=== PATIENT | female | born 1930 | race African-American/Black ===

== ENCOUNTER 2019-12-25 18:19 | Emergency (ER) | payer OTHER, MEDICARE ==
[~2019-12-25] VITALS: Ht 167.6 cm; Wt 77.2 kg
--- NOTE | 2019-12-25 19:16 | RAD ---
AP and lateral left hip radiographs to include an AP radiograph of the pelvis 12/25/2019 CLINICAL HISTORY: Fall with left hip pain. An AP digital radiograph of the pelvis to include both hips was obtained. AP and lateral digital radiographs of the left hip were obtained. There is diffuse osteopenia of the visualized bony structures. No pelvic bone fracture is seen. An acute subcapital fracture of the left femoral neck is seen. The fracture fragments are slightly impacted. No dislocation of the left hip is noted. The right hip is intact. 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 IMPRESSION: Acute subcapital fracture of the left femoral neck. Electronically signed by: Ha White MD (12/25/2019 7:13 PM) [id number]
--- NOTE | 2019-12-25 20:06 | PHYS DOC ---
Past History Past Medical History: Hypertension (FATIMAH BLANDON APRN) Past Surgical History: No Surgical History (FATIMAH BLANDON APRN) Alcohol Use: None (FATIMAH BLANDON APRN) General Adult EDM: Chief Complaint: MECHANICAL FALL HPI: HPI: Patient is a 89-year-old female, brought to the emergency room via EMS with reports of left hip and buttock pain after a fall this evening at about 1600. Patient denies any numbness, or tingling of the affected lower extremity. She reports that she lost her balance and fell onto her butt. She denies any head, neck, or back pain. Patient denies any nausea, vomiting, or loss of consciousness. She currently denies any shortness of breath, cough, chest pain, palpitations, or abdominal pain. She currently rates her pain a 5 out of 10 on the pain scale, she reports the pain is worse with movement and palpation. (FATIMAH BLANDON APRN) Review of Systems: Review of Systems: Complete ROS is negative unless otherwise noted in HPI. (FATIMAH BLANDON APRN) Physical Exam: PE: See Above Constitutional: Well developed, well nourished, no acute distress, non-toxic appearance. [] HENT: Normocephalic, atraumatic, bilateral external ears normal, nose normal. [] Eyes: PERRLA, EOMI, conjunctiva normal, no discharge. [] Neck: Normal range of motion, no tenderness, supple, no stridor. [] Cardiovascular:Heart rate regular rhythm Lungs & Thorax: Respirations even and unlabored, no retractions, no respiratory distress Abdomen: soft, no tenderness Skin: Warm, dry, no erythema, no rash. [] Back: No tenderness, no CVA tenderness. [] Extremities: Left hip: Tenderness to palpation without rotation or shortening, no crepitus, no cyanosis, ROM limited due to pain. Neurologic: Alert and oriented X 3, normal motor function, normal sensory function, no focal deficits noted. [] Psychologic: Affect normal, judgement normal, mood normal. [] (FATIMAH BLANDON APRN) Current Patient Data: Vital Signs: Vital Signs Date Time Temp Pulse Resp B/P (MAP) Pulse Ox O2 Delivery O2 Flow Rate FiO2 12/25/19 18:52 97.7 78 18 195/83 (120) 96 Room Air (FATIMAH BLANDON APRN) EKG: EKG: [] (FATIMAH BLANDON APRN) Radiology/Procedures: Radiology/Procedures: PROCEDURE: HIP LEFT 2V WITH PELVIS AP and lateral left hip radiographs to include an AP radiograph of the pelvis 12/25/2019 CLINICAL HISTORY: Fall with left hip pain. An AP digital radiograph of the pelvis to include both hips was obtained. AP and lateral digital radiographs of the left hip were obtained. There is diffuse osteopenia of the visualized bony structures. No pelvic bone fracture is seen. An acute subcapital fracture of the left femoral neck is seen. The fracture fragments are slightly impacted. No dislocation of the left hip is noted. The right hip is intact. 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 IMPRESSION: Acute subcapital fracture of the left femoral neck. Electronically signed by: Ha White MD (12/25/2019 7:13 PM) [id number][] (FATIMAH BLANDON APRN) Heart Score: Risk Factors: Risk Factors: DM, Current or recent (<one month) smoker, HTN, HLP, family history of CAD, obesity. Risk Scores: Score 0 - 3: 2.5% MACE over next 6 weeks - Discharge Home Score 4 - 6: 20.3% MACE over next 6 weeks - Admit for Clinical Observation Score 7 - 10: 72.7% MACE over next 6 weeks - Early Invasive Strategies (FATIMAH BLANDON APRN) Course & Med Decision Making: Course & Med Decision Making Pertinent Labs and Imaging studies reviewed. (See chart for details) 1956-I spoke with Dr. Mar about the patient's x-ray will call the hospitalist and have the pt tx to [place] for surgery tomorrow afternoon. Will inform the hospitalist that the patient can have clear liquids for breakfast but then needs to be NPO for surgery. 2019-Dr. Duron is advised of patient need for transfer, he will accept the patient. Dr. Dawson was advised that the patient will need to be clear liquids for breakfast tomorrow then n.p.o. for surgery in the afternoon per Dr. Mar. We will arrange for ambulance transfer to [facility]. Patient's vital signs stable. Patient remains afebrile, appears nontoxic, r espirations even and unlabored. Patient will be admitted to the medical/surgical floor. Patient's case and plan of care also discussed with Dr. Moar [] (FATIMAH BLANDON APRN) Kathe Disclaimer: Kathe Disclaimer: This electronic medical record was generated, in whole or in part, using a voice recognition dictation system. (FATIMAH BLANDON APRN) Attending Co-Sign The patient was seen and interviewed as well as examined at the bedside. The chart was reviewed. The case was discussed. Agree with the plan of care. (JESSICA MORA DO) Departure Departure: Impression: Primary Impression: Closed left hip fracture Qualified Codes: S72.002A - Fracture of unspecified part of neck of left femur, initial encounter for closed fracture Disposition: 02 DC/TRF OTHER SHORT TERM HOS ([facility]) Admitting Physician: Other (Santiago Duron) (FATIMAH BLANDON APRN) Condition: STABLE Referrals: DEMETRIA AYERS MD (PCP) FATIMAH BLANDON APRN Dec 25, 2019 20:06 JESSICA MORA DO Dec 25, 2019 23:15
[2019-12-25 20:52] LABS: BASO % 0 % (0-3); EOS % 0 % (0-3); HEMATOCRIT 34.2 % (36.0-47.0); HEMOGLOBIN 10.6 g/dL (12.0-15.5); LYMPH # 1.2 x10^3/uL (1.0-4.8); LYMPH % 9 % (24-48); MEAN CORPUSCULAR HEMOGLOBIN 21 pg (25-35); MEAN CORPUSCULAR HGB CONC 31 g/dL (31-37); MEAN CORPUSCULAR VOLUME 67 fL (79-100); MONO # 0.5 x10^3/uL (0.0-1.1); MONO % 4 % (0-9); NEUT # 11.5 x10^3uL (1.8-7.7); NEUT % 87 % (31-73); PLATELET COUNT 189 x10^3/uL (140-400); RED BLOOD COUNT 5.14 x10^6/uL (3.50-5.40); WHITE BLOOD COUNT 13.3 x10^3/uL (4.0-11.0)
[2019-12-25 21:13] LABS: CALCIUM 9.9 mg/dL (8.5-10.1); CREATININE 1.2 mg/dL (0.6-1.0); GFR 51.2; POTASSIUM 4.3 mmol/L (3.5-5.1)
[2019-12-25] MEDS ORDERED: ONDANSETRON PF 4 MG/2 ML VIAL. IVP ONE (21:45)
[2019-12-25 23:25] VITALS: BP 178/92
== END 2019-12-25 23:42 | disposition short-term general hospital (02) ==
LOC: ER 18:19
DX: S72.002A Fracture of unspecified part of neck of left femur, initial encounter for closed fracture (principal); I10 Essential (primary) hypertension; W18.39XA Other fall on same level, initial encounter; Y93.89 Activity, other specified; Y92.89 Other specified places as the place of occurrence of the external cause; Y99.8 Other external cause status
CPT/HCPCS: 36415; 51702; 73502; 80048; 85025; 85610; 85730; 96374; 96375; 96376; 99285; J2405; J3010